=== PATIENT | female | born 1995 | race Caucasian/White ===

== ENCOUNTER 2019-08-24 06:34 | Inpatient (IN) ==
[2019-08-24] MEDS ORDERED: LACTATED RINGERS 1,000 ML IV PRN (07:30)
[2019-08-24] MEDS ORDERED: ONDANSETRON 4 MG/2 ML VIAL IV PRN (07:30)
[2019-08-24 08:03] LABS: Basophils % 0.1 % (0.0-0.8); Eosinophils # 0.1 10*3/uL (0.0-0.87); Eosinophils % 0.5 % (0.00-10.9); Hematocrit 34.5 VOL% (35.7-47.0); Hemoglobin 11.3 GM/DL (12.0-16.0); Immature Granulocytes % 0.5 %; Immature Granulocytes Absolute 0.05 #; Lymphocytes # 2.5 10*3/uL (1.4-4.0); Lymphocytes % 24.9 % (21.3-54.2); Mean Corpuscular HGB Conc 32.8 GM/DL (32-36); Mean Platelet Volume 12.8 FL (9.6-12.0); Monocytes % 5.7 % (1.7-12.7); Neutrophils % 68.3 % (38.7-73.9); Platelet Count 128 T/CUMM (130-400); Red Blood Count 4.01 MC/CUMM (3.8-5.5); Red Cell Distribution Width 15.2 % (9.3-17.3); White Blood Count 9.8 T/CUMM (4-12)
[2019-08-24] MEDS: CLINDAMYCIN INJ 900 MG in PREMIX 1 EACH IV SCH ×2 (08:30→16:27)
[2019-08-24 10:20] LABS: Alanine Aminotransferase 18 U/L (13-56); Albumin 2.4 G/DL (3.4-5.0); Alkaline Phosphatase 106 U/L (45-117); Aspartate Amino Transferase 21 U/L (0-37); Bilirubin,Total < 0.39 MG/DL (0.2-1.0); Blood Urea Nitrogen 10 MG/DL (7-18); Calcium 9.1 MG/DL (8.5-10.1); Estimated Glom Filtration Rate 168 ML/MIN; Glucose 93 MG/DL (74-106); Osmolality,Calculated 268.1 MOS/KG (273-304); Total Protein 6.7 G/DL (6.4-8.3)
[2019-08-24] MEDS ORDERED: ACETAMINOPHEN 500 MG TABLET PO PRN (16:27)
[2019-08-24] MEDS ORDERED: LABETALOL 100 MG TABLET ONE (16:49)
[2019-08-24] MEDS: LABETALOL 100 MG TABLET PO SCH (16:50)
[2019-08-24] MEDS ORDERED: hydrALAZINE 20 MG/1 ML VIAL ONE (18:19)
[2019-08-24] MEDS ORDERED: MEPERIDINE 50 MG/1 ML VIAL IV PRN (19:38)
[2019-08-24] MEDS ORDERED: ePHEDrine 50 MG/ML AMP IV PRN (20:52)
[2019-08-24] MEDS ORDERED: NALOXONE 0.4 MG/ML VIAL IV PRN (20:52)
[2019-08-24] MEDS ORDERED: diphenhydrAMINE 50 MG/1 ML VIAL IV PRN ×2 (20:52)
[2019-08-24] MEDS ORDERED: PROMETHAZINE 25 MG/1 ML VIAL IM ONE (20:52)
[2019-08-24] MEDS ORDERED: CITRIC ACID/SODIUM CITRATE 30 ML UDCUP PO ONE (20:52)
[2019-08-24] MEDS ORDERED: hydrOXYzine HCL 25 MG/1 ML VIAL IM PRN (20:52)
[2019-08-24] MEDS ORDERED: FAMOTIDINE 20 MG/2 ML VIAL IV ONE (20:52)
[2019-08-24] MEDS ORDERED: ONDANSETRON 4 MG/2 ML VIAL IV ONE (20:52)
[2019-08-24] MEDS ORDERED: fentaNYL 2 MCG/ROPIV 0.2% EPID 100 ML EPIDURAL SCH (21:00)
[2019-08-24] MEDS: LACTATED RINGERS 1,000 ML IV SCH (21:32)
[2019-08-24] MEDS ORDERED: miSOPROStoL 200 MCG TABLET ONE (22:58)
[2019-08-24] MEDS ORDERED: METHYLERGONOVINE 0.2 MG/1 ML AMP ONE (22:58)
[2019-08-24] MEDS ORDERED: TRANEXAMIC ACID 1,000 MG/10 ML VIAL ONE (22:58)
[2019-08-24] MEDS ORDERED: OXYTOCIN/LR 20 UNIT/1,000 ML BAG IV ONE (22:58)
[2019-08-24] MEDS ORDERED: CARBOPROST TROMETHAMINE 250 MCG/ML AMP IM ONE (22:59)
[2019-08-24 23:14] LABS: Apearance,Urine CLEAR (Clear); Bilirubin,Urine Negative (Negative); Blood, Urine Negative (Negative); Glucose,Urine (UA) Negative (Negative); Ketones,Urine 80 mg/dL (Negative); Mucus,Urine Occasional /LPF (Occasional); Nitrite,Urine Negative (Negative); Protein,Urine Negative; RBC,Urine <1 /HPF (0-4); Squamous Epithelial Cell,Urine Occasional /HPF (0-10); Urine Color Yellow (Yellow); Urine Specific Gravity 1.019 (1.001-1.035); Urine Urobilinogen < 2.0 EU/DL (0.2-1.0); WBC,Urine 3 /HPF (0-6)
[2019-08-25] MEDS: CLINDAMYCIN INJ 900 MG in PREMIX 1 EACH IV SCH (00:27)
[2019-08-25] MEDS: OXYTOCIN/LR 20 UNIT/1,000 ML BAG IV SCH ×2 (00:30→09:41)
[2019-08-25] MEDS ORDERED: LIDOCAINE MPF 2% /EPI 20 ML VIAL ONE (04:01)
[2019-08-25] MEDS ORDERED: fentaNYL 100 MCG/2 ML VIAL ONE (04:01)
[2019-08-25] MEDS ORDERED: CLINDAMYCIN INJ 900 MG in PREMIX 1 EACH IV ONE ×2 (04:04→13:00)
[2019-08-25 05:23] LABS: Apearance,Urine CLEAR (Clear); Bacteria,Urine Occasional /HPF (Few); Bilirubin,Urine Negative (Negative); Blood, Urine Negative (Negative); Glucose,Urine (UA) Negative (Negative); Ketones,Urine 5 mg/dL (Negative); Nitrite,Urine Negative (Negative); Protein,Urine Negative; RBC,Urine 7 /HPF (0-4); Squamous Epithelial Cell,Urine Occasional /HPF (0-10); Urine Color Yellow (Yellow); Urine Specific Gravity 1.014 (1.001-1.035); Urine Urobilinogen < 2.0 EU/DL (0.2-1.0); WBC,Urine 2 /HPF (0-6)
[2019-08-25] MEDS ORDERED: ACETAMINOPHEN 325 MG TABLET PO PRN (05:37)
[2019-08-25] MEDS ORDERED: SIMETHICONE CHEW 80 MG TABLET PO PRN (05:37)
[2019-08-25] MEDS ORDERED: ONDANSETRON 4 MG/2 ML VIAL IV PRN (05:37)
[2019-08-25] MEDS ORDERED: OXYTOCIN/LR 20 UNIT/1,000 ML BAG IV ONE (05:37)
[2019-08-25] MEDS ORDERED: RHO(D) IMMUNE GLOBULIN 300 MCG SYRINGE IM ONE (05:37)
[2019-08-25] MEDS ORDERED: PHENYLEPHRINE 1 MG/10 ML SYRINGE IV ONE (05:59)
[2019-08-25] MEDS ORDERED: LACTATED RINGERS 1,000 ML IV SCH (06:00)
[2019-08-25] MEDS ORDERED: ceFAZolin 1,000 MG in SYRINGE 1 EACH IV SCH (06:00)
[2019-08-25] MEDS: oxyCODONE/ACETAMINOPHEN 5-325 MG TABLET PO PRN ×3 (07:03→21:06)
[2019-08-25] MEDS: LABETALOL 100 MG TABLET PO SCH ×2 (09:11→21:07)
[2019-08-25] MEDS: LACTATED RINGERS 1,000 ML IV SCH (09:40)
[2019-08-25] MEDS: DOCUSATE SODIUM 100 MG CAPSULE PO SCH ×2 (11:48→21:07)
[2019-08-25] MEDS: IBUPROFEN 800 MG TABLET PO PRN ×2 (11:48→21:07)
[2019-08-25] MEDS: MULTIVITAMIN (PRENATAL) TABLET PO SCH (11:48)
[2019-08-25 14:01] LABS: Basophils % 0.1 % (0.0-0.8); Eosinophils % 0.2 % (0.00-10.9); Hematocrit 34.9 VOL% (35.7-47.0); Hemoglobin 11.3 GM/DL (12.0-16.0); Immature Granulocytes % 0.6 %; Immature Granulocytes Absolute 0.09 #; Lymphocytes # 2.4 10*3/uL (1.4-4.0); Mean Corpuscular HGB Conc 32.4 GM/DL (32-36); Mean Corpuscular Volume 86.6 FL (87-102); Mean Platelet Volume 12.2 FL (9.6-12.0); Monocytes % 5.7 % (1.7-12.7); Neutrophils % 78.4 % (38.7-73.9); Platelet Count 130 T/CUMM (130-400); Red Blood Count 4.03 MC/CUMM (3.8-5.5); Red Cell Distribution Width 15.1 % (9.3-17.3); White Blood Count 15.7 T/CUMM (4-12)
[2019-08-25 14:52] LABS: Hypochromasia Slight; Lymphocytes 14 % (20-55); Platelet Estimate Normal; Segmented Neutrophils 78 % (50-85); Total Cells Counted 100
[2019-08-25 14:53] LABS: Microcytosis Slight
[2019-08-26] MEDS: oxyCODONE/ACETAMINOPHEN 5-325 MG TABLET PO PRN ×5 (00:49→20:39)
[2019-08-26 06:33] LABS: Basophils % 0.2 % (0.0-0.8); Eosinophils # 0.1 10*3/uL (0.0-0.87); Eosinophils % 0.6 % (0.00-10.9); Hematocrit 31.8 VOL% (35.7-47.0); Hemoglobin 10.2 GM/DL (12.0-16.0); Immature Granulocytes % 0.4 %; Immature Granulocytes Absolute 0.05 #; Lymphocytes # 2.4 10*3/uL (1.4-4.0); Lymphocytes % 20.4 % (21.3-54.2); Mean Corpuscular HGB Conc 32.1 GM/DL (32-36); Mean Corpuscular Volume 86.6 FL (87-102); Mean Platelet Volume 12.6 FL (9.6-12.0); Monocytes % 5.8 % (1.7-12.7); Neutrophils % 72.6 % (38.7-73.9); Platelet Count 123 T/CUMM (130-400); Red Blood Count 3.67 MC/CUMM (3.8-5.5); Red Cell Distribution Width 15.5 % (9.3-17.3); White Blood Count 11.8 T/CUMM (4-12)
[2019-08-26] MEDS: DOCUSATE SODIUM 100 MG CAPSULE PO SCH ×2 (08:10→20:40)
[2019-08-26] MEDS: MULTIVITAMIN (PRENATAL) TABLET PO SCH (08:10)
[2019-08-26] MEDS: LABETALOL 100 MG TABLET PO SCH ×2 (08:10→20:41)
[2019-08-26] MEDS: IBUPROFEN 800 MG TABLET PO PRN ×2 (10:30→16:26)
[2019-08-26] MEDS: MAGNESIUM HYDROXIDE SUSP 30 ML UDCUP PO PRN ×2 (10:30→20:40)
[2019-08-26] MEDS: METOCLOPRAMIDE 10 MG TABLET PO SCH ×3 (10:30→20:41)
[2019-08-27] MEDS: IBUPROFEN 800 MG TABLET PO PRN ×2 (00:37→07:58)
[2019-08-27] MEDS: oxyCODONE/ACETAMINOPHEN 5-325 MG TABLET PO PRN ×2 (00:39→06:02)
[2019-08-27] MEDS: METOCLOPRAMIDE 10 MG TABLET PO SCH (06:02)
[2019-08-27] MEDS: MULTIVITAMIN (PRENATAL) TABLET PO SCH (07:58)
[2019-08-27] MEDS: LABETALOL 100 MG TABLET PO SCH (07:58)
[2019-08-27] MEDS: DOCUSATE SODIUM 100 MG CAPSULE PO SCH (07:58)
[2019-08-27 08:56] VITALS: BP 128/77
== END 2019-08-27 11:10 | disposition home or self-care (01) | DRG 788 ==
LOC: N.LDOUT 06:34 → N.LD 06:38 → N.OB 08-25 09:48
PROVIDERS: ADMIT Obstetrics & Gynecology; ATTEND Obstetrics & Gynecology
PROC: LDCSECT (ICD-10-PCS; 2019-08-25 04:00)

== ENCOUNTER 2022-01-29 11:53 | Inpatient (IN) ==
[2022-01-29 12:26] LABS: Basophils % 0.3 % (0.0-0.8); Eosinophils % 0.3 % (0.00-10.9); Hematocrit 35.6 VOL% (35.7-47.0); Hemoglobin 11.3 GM/DL (12.0-16.0); Immature Granulocytes % 0.6 %; Immature Granulocytes Absolute 0.06 #; Lymphocytes # 2.6 10*3/uL (1.4-4.0); Lymphocytes % 27.3 % (21.3-54.2); Mean Corpuscular HGB Conc 31.7 GM/DL (32-36); Mean Corpuscular Volume 81.3 FL (87-102); Mean Platelet Volume 12.9 FL (9.6-12.0); Monocytes # 0.4 10*3/uL (0.11-0.8); Monocytes % 4.7 % (1.7-12.7); Neutrophils % 66.8 % (38.7-73.9); Platelet Count 148 T/CUMM (130-400); Red Blood Count 4.38 MC/CUMM (3.8-5.5); Red Cell Distribution Width 14.5 % (9.3-17.3); White Blood Count 9.4 T/CUMM (4-12)
[2022-01-29 12:42] LABS: Bacteria,Urine Many /HPF (Few); Bilirubin,Urine Negative (Negative); Blood, Urine Negative (Negative); Glucose,Urine (UA) Negative (Negative); Ketones,Urine Negative (Negative); Mucus,Urine Occasional /LPF (Occasional); Nitrite,Urine Negative (Negative); Protein,Urine Negative (Negative); RBC,Urine <1 /HPF (0-4); Squamous Epithelial Cell,Urine Few /HPF (0-10); Urine Appearance Slightly Hazy (Clear); Urine Color Yellow (Yellow); Urine Specific Gravity 1.016 (1.001-1.035)
[2022-01-29 12:47] LABS: INR 0.9; Partial Thromboplastin Time 29.3 SECS (23.7-32.9)
[2022-01-29 12:49] LABS: Alanine Aminotransferase 17 U/L (13-56); Albumin 2.5 G/DL (3.4-5.0); Alkaline Phosphatase 132 U/L (45-117); Aspartate Amino Transferase 15 U/L (0-37); Bilirubin,Total < 0.39 MG/DL (0.20-1.00); Blood Urea Nitrogen 7 MG/DL (7-18); Carbon Dioxide 24 MMOL/L (21-32); Chloride 108 MMOL/L (98-107); Glucose 82 MG/DL (74-106); Osmolality,Calculated 273.5 MOS/KG (273-304); Potassium 4.3 MMOL/L (3.5-5.1); Sodium 139 MMOL/L (136-145); Total Protein 7.2 G/DL (6.4-8.2); Uric Acid 5.7 MG/DL (2.6-6.0)
[2022-01-29 13:23] LABS: Protein/Creatinine Ratio,Urine 0.2 RATIO
[2022-01-29] MEDS ORDERED: CARBOPROST TROMETHAMINE 250 MCG/ML AMP IM PRN (14:05)
[2022-01-29] MEDS ORDERED: FAMOTIDINE 20 MG/2 ML VIAL IV ONE (14:05)
[2022-01-29] MEDS ORDERED: miSOPROStoL 200 MCG TABLET RECTAL PRN (14:05)
[2022-01-29] MEDS ORDERED: OXYTOCIN/LR 20 UNIT/1,000 ML BAG IV ONE ×3 (14:05→19:07)
[2022-01-29] MEDS ORDERED: CLINDAMYCIN INJ 900 MG/50 ML PREMIX IV ONE (14:05)
[2022-01-29] MEDS ORDERED: CITRIC ACID/SODIUM CITRATE 30 ML UDCUP PO ONE (14:05)
[2022-01-29] MEDS ORDERED: METHYLERGONOVINE 0.2 MG/1 ML AMP IM PRN (14:05)
[2022-01-29] MEDS ORDERED: TRANEXAMIC ACID 1,000 MG in SODIUM CHLORIDE 0.9% 100 ML IV PRN (14:05)
[2022-01-29] MEDS ORDERED: LACTATED RINGERS 1,000 ML IV ONE (14:07)
[2022-01-29] MEDS ORDERED: LACTATED RINGERS 1,000 ML IV SCH ×2 (14:30→19:30)
[2022-01-29] MEDS ORDERED: BUPIVACAINE SPINAL 0.75% 2 ML AMP SPINAL ONE (16:49)
[2022-01-29] MEDS ORDERED: ONDANSETRON 4 MG/2 ML VIAL ONE (16:49)
[2022-01-29] MEDS ORDERED: buprenorphine HCL 0.3 MG/ML VIAL ONE (16:50)
[2022-01-29] MEDS ORDERED: SODIUM CHLORIDE 0.9% 0 ML IV ONE (16:51)
[2022-01-29] MEDS ORDERED: CARBOPROST TROMETHAMINE 250 MCG/ML AMP IM ONE (16:51)
[2022-01-29] MEDS ORDERED: miSOPROStoL 200 MCG TABLET ONE (16:51)
[2022-01-29] MEDS ORDERED: TRANEXAMIC ACID 1,000 MG/10 ML VIAL ONE ×2 (16:51→18:32)
[2022-01-29 18:31] LABS: Cord Arterial Blood HCO3 21.4 MMOL/L
[2022-01-29] MEDS ORDERED: KETOROLAC 30 MG/1 ML VIAL ONE (18:32)
[2022-01-29] MEDS ORDERED: ACETAMINOPHEN INJ 1,000 MG/100 ML VIAL IV ONE (18:32)
[2022-01-29] MEDS ORDERED: PHENYLEPHRINE 1 MG/10 ML SYRINGE IV ONE (18:32)
[2022-01-29 18:33] LABS: Cord Venous Blood HCO3 22.8 MMOL/L; Cord Venous Blood PO2 25.5
[2022-01-29 18:33] LABS: Bacteria,Urine Occasional /HPF (Few); Bilirubin,Urine Negative (Negative); Blood, Urine Negative (Negative); Glucose,Urine (UA) Negative (Negative); Ketones,Urine 20 mg/dL (Negative); Mucus,Urine Occasional /LPF (Occasional); Nitrite,Urine Negative (Negative); Protein,Urine Negative (Negative); RBC,Urine 2 /HPF (0-4); Squamous Epithelial Cell,Urine Occasional /HPF (0-10); Urine Appearance CLEAR (Clear); Urine Color Yellow (Yellow); Urine Specific Gravity 1.014 (1.001-1.035); Urine Urobilinogen < 2.0 eU/dL (<2.0)
[2022-01-29] MEDS ORDERED: ONDANSETRON 4 MG/2 ML VIAL IV PRN (19:07)
[2022-01-29] MEDS ORDERED: ACETAMINOPHEN 325 MG TABLET PO PRN (19:07)
[2022-01-29] MEDS ORDERED: SIMETHICONE CHEW 80 MG TABLET PO PRN (19:07)
[2022-01-29] MEDS ORDERED: RHO(D) IMMUNE GLOBULIN 300 MCG SYRINGE IM ONE (19:07)
[2022-01-29] MEDS ORDERED: KETOROLAC 30 MG/1 ML VIAL IV SCH (19:30)
[2022-01-29] MEDS: DOCUSATE SODIUM 100 MG CAPSULE PO SCH (20:33)
[2022-01-30] MEDS: ACETAMINOPHEN 500 MG TABLET PO SCH ×2 (00:20→06:29)
[2022-01-30] MEDS: CLINDAMYCIN INJ 900 MG/50 ML PREMIX IV SCH ×2 (00:21→09:01)
[2022-01-30 05:56] LABS: Basophils % 0.2 % (0.0-0.8); Eosinophils % 0.2 % (0.00-10.9); Hematocrit 30.5 VOL% (35.7-47.0); Hemoglobin 9.8 GM/DL (12.0-16.0); Immature Granulocytes % 0.4 %; Immature Granulocytes Absolute 0.04 #; Lymphocytes % 29.1 % (21.3-54.2); Mean Corpuscular HGB Conc 32.1 GM/DL (32-36); Mean Corpuscular Volume 82.2 FL (87-102); Monocytes # 0.6 10*3/uL (0.11-0.8); Monocytes % 5.8 % (1.7-12.7); Neutrophils % 64.3 % (38.7-73.9); Platelet Count 113 T/CUMM (130-400); Red Blood Count 3.71 MC/CUMM (3.8-5.5); Red Cell Distribution Width 14.6 % (9.3-17.3); White Blood Count 10.4 T/CUMM (4-12)
[2022-01-30] MEDS: KETOROLAC 30 MG/1 ML VIAL IV SCH ×2 (06:25→14:06)
[2022-01-30] MEDS: MULTIVITAMIN (PRENATAL) TABLET PO SCH (09:02)
[2022-01-30] MEDS: DOCUSATE SODIUM 100 MG CAPSULE PO SCH ×2 (09:02→21:15)
[2022-01-30] MEDS: SERTRALINE 50 MG TABLET PO SCH (09:02)
[2022-01-30] MEDS ORDERED: KETOROLAC 30 MG/1 ML VIAL IV SCH (14:00)
[2022-01-30] MEDS ORDERED: ACETAMINOPHEN 500 MG TABLET PO SCH (18:00)
[2022-01-30] MEDS: IBUPROFEN 800 MG TABLET PO PRN (18:24)
[2022-01-30] MEDS: MAGNESIUM HYDROXIDE SUSP 30 ML UDCUP PO PRN (21:15)
[2022-01-31] MEDS: oxyCODONE/ACETAMINOPHEN 5-325 MG TABLET PO PRN ×2 (00:10→09:40)
[2022-01-31] MEDS: IBUPROFEN 800 MG TABLET PO PRN (05:00)
[2022-01-31 08:53] VITALS: BP 143/78
[2022-01-31] MEDS: DOCUSATE SODIUM 100 MG CAPSULE PO SCH (09:34)
[2022-01-31] MEDS: SERTRALINE 50 MG TABLET PO SCH (09:34)
[2022-01-31] MEDS: MULTIVITAMIN (PRENATAL) TABLET PO SCH (09:34)
[2022-01-31] MEDS: MAGNESIUM HYDROXIDE SUSP 30 ML UDCUP PO PRN (09:35)
== END 2022-01-31 12:30 | disposition home or self-care (01) | DRG 788 ==
LOC: N.LDOUT 11:53 → N.LD 11:54 → N.OB 01-30 15:04
PROVIDERS: ADMIT Obstetrics & Gynecology; ATTEND Obstetrics & Gynecology
PROC: LDCSECT (ICD-10-PCS; 2022-01-29 17:30)